=== PATIENT | female | born 1965 | race Caucasian/White ===

== ENCOUNTER → 2020-03-14 | Outpatient (CLI) | payer BC ==
[~2020-03-14] MED LIST: BUPR300T94 PO; CALC-534 PO; CETI-158 PO; CHOL10003 PO; GLUC1CAP48 PO; LEVO150T5 PO; MULT-658 PO
== END | disposition home or self-care (01) ==
LOC: STAR 12:33
PROVIDERS: ATTEND Orthopaedic Surgery
DX: Z20.828 Contact with and (suspected) exposure to other viral communicable diseases (principal); S83.512A Sprain of anterior cruciate ligament of left knee, initial encounter; M25.561 Pain in right knee; X58.XXXA Exposure to other specified factors, initial encounter; Y93.89 Activity, other specified; Y92.89 Other specified places as the place of occurrence of the external cause; Y99.8 Other external cause status
CPT/HCPCS: 87635

== ENCOUNTER 2020-03-20 05:16 | Day surgery (SDC) | payer BC ==
[~2020-03-20] VITALS: Ht 175.3 cm; Wt 86.9 kg
[2020-03-20] MEDS ORDERED: FENTANYL PF 250 MCG/5ML ONE (06:03)
[2020-03-20] MEDS ORDERED: MIDAZOLAM 1 MG/ML, 2ML ONE (06:03)
[2020-03-20] MEDS ORDERED: CLINDAMYCIN 150 MG/ML, 6ML ONE (06:06)
[2020-03-20] MEDS ORDERED: BUPIVACAINE/PF 0.5% ONE (06:09)
[2020-03-20] MEDS ORDERED: DEXAMETHASONE 4 MG/ML, 5ML ONE (06:09)
[2020-03-20] MEDS ORDERED: KETOROLAC 30 MG/1 ML ONE (06:09)
[2020-03-20] MEDS ORDERED: PROPOFOL 10 MG/ML, 20ML ONE (06:09)
[2020-03-20] MEDS ORDERED: ONDANSETRON 2MG/ML, 2ML ONE (06:09)
[2020-03-20] MEDS ORDERED: LIDOCAINE/PF 1%, 30ML ONE (06:11)
[2020-03-20] MEDS ORDERED: ROPIvacaine/PF 0.5%, 30 ML ONE (06:11)
[2020-03-20 06:13] VITALS: BP 112/77
[2020-03-20] MEDS ORDERED: morphine SULFATE 10 MG/ML, 1ML IVPush PRN (06:30)
[2020-03-20] MEDS ORDERED: LACTATED RINGERS 1,000 ML IV SCH (06:30)
[2020-03-20] MEDS ORDERED: LABETALOL 5MG/ML, 20ML IV PRN (06:30)
[2020-03-20] MEDS ORDERED: ACETAMINOPHEN 325 MG TABLET PO PRN (06:30)
[2020-03-20] MEDS ORDERED: CHLORHEXIDINE 15 ML UDC MM ONE (06:30)
[2020-03-20] MEDS ORDERED: PROMETHAZINE 25 MG/ML, 1ML IVPush PRN (06:30)
[2020-03-20] MEDS ORDERED: hydrALAzine 20 MG/ML, 1ML IV PRN (06:30)
[2020-03-20] MEDS ORDERED: OXYcodone 5 MG/5 ML ORAL.SOL UDC PO PRN (06:30)
[2020-03-20] MEDS ORDERED: HALOPERIDOL 5 MG/ML IV PRN (06:30)
[2020-03-20] MEDS ORDERED: HYDROmorphone 1 MG/ML, 1ML INJ IVPush PRN (06:30)
[2020-03-20] MEDS ORDERED: MEPERIDINE/PF 25MG/ML,1ML ONE ×2 (09:01→09:14)
[2020-03-20] MEDS: MEPERIDINE/PF 25MG/0.5ML IVPush PRN ×2 (09:02→09:14)
[2020-03-20] MEDS: FENTANYL PF 100 MCG/2ML IV PRN ×2 (09:05→09:22)
[2020-03-20] MEDS ORDERED: FENTANYL PF 100 MCG/2ML ONE (09:06)
[2020-03-20] MEDS ORDERED: OXYcodone 5 MG/5 ML ORAL.SOL UDC ONE (09:23)
[2020-03-20] MEDS ORDERED: ACETAMINOPHEN 650 MG/20.3 ML UDC ONE (09:23)
== END 2020-03-20 11:20 | disposition home or self-care (01) ==
LOC: OUT 05:16
PROVIDERS: ATTEND Orthopaedic Surgery
DX: S83.232A Complex tear of medial meniscus, current injury, left knee, initial encounter (principal); S83.512A Sprain of anterior cruciate ligament of left knee, initial encounter; M65.862 Other synovitis and tenosynovitis, left lower leg; G89.18 Other acute postprocedural pain; M19.90 Unspecified osteoarthritis, unspecified site; E03.9 Hypothyroidism, unspecified; Z79.890 Hormone replacement therapy; Z79.899 Other long term (current) drug therapy; Z88.1 Allergy status to other antibiotic agents; Z82.61 Family history of arthritis; X50.1XXA Overexertion from prolonged static or awkward postures, initial encounter; Y93.01 Activity, walking, marching and hiking; Y92.89 Other specified places as the place of occurrence of the external cause; Y99.8 Other external cause status
CPT/HCPCS: 20680; 29881; 29888; 64447; 73560; 82962; C1762; J1100; J2175; J2250; J2405; J2704; J2795; J3010; J7120; 76000; J1885